=== PATIENT | male | born 1940 | race Caucasian/White ===

== ENCOUNTER → 2016-11-04 | Outpatient (CLI) | payer MEDICARE | END | disposition home or self-care (01) | LOC: PCVCCLINIC 11:00 | PROVIDERS: ATTEND Internal Medicine Cardiovascular Disease | DX: I10 Essential (primary) hypertension (principal); E78.00 Pure hypercholesterolemia, unspecified; M19.90 Unspecified osteoarthritis, unspecified site; I49.3 Ventricular premature depolarization; C61 Malignant neoplasm of prostate; Z79.82 Long term (current) use of aspirin; Z79.899 Other long term (current) drug therapy | CPT/HCPCS: 93005; G0463 ==

== ENCOUNTER → 2017-07-16 | Outpatient (CLI) | payer MEDICARE | END | disposition home or self-care (01) | LOC: PCVCIMAG 14:56 | DX: I73.9 Peripheral vascular disease, unspecified (principal); I10 Essential (primary) hypertension; E78.5 Hyperlipidemia, unspecified | CPT/HCPCS: 93325; 93351 ==

== ENCOUNTER → 2018-09-23 | Outpatient (CLI) | payer MEDICARE | END | disposition home or self-care (01) | LOC: PCVCCLINIC 13:00 | PROVIDERS: ATTEND Internal Medicine Cardiovascular Disease | DX: I10 Essential (primary) hypertension (principal); E78.00 Pure hypercholesterolemia, unspecified | CPT/HCPCS: 36415; 80061; 93005; G0463 ==

== ENCOUNTER → 2019-04-04 | Outpatient (CLI) | payer MEDICARE ==
--- NOTE | 2019-04-04 16:41 | PCVCIMAG ---
APPROVED REPORT Study performed: 04/04/2019 14:05:32 Exam: Comprehensive 2D, Doppler, and color-flow Echocardiogram Indication: Hypertension, Hyperlipidemia Patient Location: Echo lab Stress Nurse: Moni Khan RN Status: routine Ht: 5 ft 10 in HR: 70 bpm BP: 160/80 mmHg Rhythm: NSR Medical History Cardiac Risk Factors: HTN, Hyperlipidemia Procedure The patient underwent an Exercise Stress Test using the Dick Protocol. Blood pressure, heart rate, and EKG were monitored. An Echocardiogram was performed by master technician in four stages in quad fashion. At peak stress, four selected images were obtained and placed side by side with resting images for comparison. Stress Test Details Stress Test: Exercise stress testing was performed using a Dick protocol. HR Resting HR: 70 bpmMax Heart Rate (APMHR): 140 bpm Max HR Achieved: 160 bpmTarget HR (85% APMHR): 119 bpm % of APMHR: 114 Recovery HR: 70 bpm HR response to stress: Normal HR response to stress BP Resting BP: 160/80 mmHg Max BP: 170/80 mmHg Recovery BP: 142/64 mmHg BP response to stress: Normal blood pressure response to stress. ECG Resting ECG: Sinus Rhythm Stress ECG: Sinus Rhythm Arrhythmia: PAC's Recovery ECG: Sinus Rhythm Recovery Arrhythmia: PAC's Clinical Reason for Termination: Maximal effort Exercise duration: 6 min sec Highest Stage Achieved: Stage 2: 2.5 mph at 12% grade. Exercise capacity: 7.60 METs Overall Exercise Capacity for Age: Good Pre-Stress Echo The resting Echocardiogram showed normal left ventricular contractility with an estimated Ejection Fraction of about 55-60%. Post-Stress Echo The stress Echocardiogram showed normal left ventricular contractility with an estimated Ejection Fraction of about 60-65%. Conclusion Clinical Response: Non-ischemic Exercise Capacity: Average Stress ECG Response: Non-ischemic Stress Echo Images: Non-ischemic Mild mitral regurgitation. Mild aortic insufficiency. Mild tricuspid regurgitation. Pulmonary artery pressure is 44mmHg. Other Information Study Quality: Adequate <Conclusion> Mild mitral regurgitation. Mild aortic insufficiency. Mild tricuspid regurgitation. Pulmonary artery pressure is 44mmHg.
== END | disposition home or self-care (01) ==
LOC: PCVCIMAG 13:53
PROVIDERS: ATTEND Internal Medicine Cardiovascular Disease
DX: I08.3 Combined rheumatic disorders of mitral, aortic and tricuspid valves (principal); E78.00 Pure hypercholesterolemia, unspecified; I10 Essential (primary) hypertension; Z85.46 Personal history of malignant neoplasm of prostate; Z72.89 Other problems related to lifestyle
CPT/HCPCS: 93325; 93351